=== PATIENT | male | born 1990 | race African-American/Black ===

== ENCOUNTER 2019-01-09 14:03 | Emergency (ER) | payer OTHER ==
--- NOTE | 2019-01-09 14:07 | PDOC ---
Rapid Medical Evaluation Time Seen by Provider: 01/09/19 14:05 Medical Evaluation: 01/09/19 14:06 I have performed a brief in-person evaluation of this patient. The patient presents with a chief complaint of: low back pain x 2 weeks, denies recent trauma, MVA, or heavy lifting, worse with movement/bending Pertinent physical exam findings: FROM, ambulatory, eating pretzels I have ordered the following: nothing The patient will proceed to the ED for further evaluation. Discharge Disposition - Diagnosis Low back pain - Referrals - Patient Instructions - Post Discharge Activity
[2019-01-09 14:09] VITALS: BP 150/63; PULSE 89; TEMP 98.5; BMI 29.5
[2019-01-09] MEDS ORDERED: KETOROLAC TROMETHAMINE 60 MG/2 ML VIAL IM ONE (14:21)
[2019-01-09] MEDS ORDERED: KETOROLAC TROMETHAMINE 60 MG/2 ML VIAL ONE (14:29)
--- NOTE | 2019-01-09 14:30 | PDOC ---
History of Present Illness - General Chief Complaint: Back Pain Stated Complaint: LOWER BACK PAIN Time Seen by Provider: 01/09/19 14:05 History Source: Patient Exam Limitations: No Limitations - History of Present Illness Initial Comments: 01/09/19 14:26 CHIEF COMPLAINT: Lower back pain HISTORY OF PRESENT ILLNESS: Is a 28-year-old male presents emergency department for evaluation of right upper back and left lower back pain for approximately 2 weeks. Patient is denying any radiation or neurosensory deficits, incontinence of bladder or bowel, urinary retention, saddle anesthesia, foot drop, history of IV drug use or history of cancer. Patient endorses recent history where he sustained a laceration in his right upper back approximately where the pain is. REVIEW OF SYSTEMS: GENERAL: Afebrile, denies any weakness RESPIRATORY: No cough, wheezing, or hemoptysis. CARDIAC: No chest pain or shortness of breath MUSCULOSKELETAL: Pain to generalized lower back. No point tenderness. Pain worse on left than right. SKIN : No erythema, no bruising, no deformity. GI/: Denies any abdominal pain, no urinary difficulty, incontinence or urinary retention. RECTAL: Denies any difficulty this A.m. NEUROLOGICAL: Denies any numbness or tingling. No neurosensory deficits. PHYSICAL EXAM: GENERAL: The patient is awake, alert, and fully oriented, in no acute distress. RESPIRATORY: Lungs clear bilaterally, no rhonchi wheezes or crackles CARDIAC: S1-S2 audible, no murmur rub or gallop MUSCULOSKELETAL: Pain to generalized lower back, nonradiating, no tingling or sensory deficit. Less than 2 second cap refill, +2 pedal pulses. No spinal point tenderness. Normal reflexive and no deficits to sensation or strength. GI/: Abdomen soft, nontender, nondistended. No rebound tenderness. No masses palpable. RECTAL: Deferred patient with no neurological findings SKIN: Warm, Dry, normal turgor, no erythema, no edema no bruising. Decreased range of motion of the skin around scar likely from adhesion. Past History - Past Medical History Allergies/Adverse Reactions: Allergies Allergy/AdvReac Type Severity Reaction Status Date / Time No Known Allergies Allergy Verified 01/09/19 14:09 Home Medications: Ambulatory Orders Methocarbamol [Robaxin -] 1,500 mg PO Q8H PRN #30 tablet 01/09/19 Cancer: Yes Cardiac Disorders: Yes COPD: Yes CHF: Yes Diabetes: Yes GI Disorders: Yes HTN: Yes - Psycho Social/Smoking Cessation Hx Smoking History: Never smoked Have you smoked in the past 12 months: No Information on smoking cessation initiated: No Hx Alcohol Use: No Drug/Substance Use Hx: No *Physical Exam - Vital Signs Last Vital Signs Temp Pulse Resp BP Pulse Ox 98.5 F 89 20 150/63 100 01/09/19 14:07 01/09/19 14:07 01/09/19 14:07 01/09/19 14:07 01/09/19 14:07 Medical Decision Making - Medical Decision Making 01/09/19 14:29 A/P: 28-year-old male with left-sided lower back pain and pain surrounding scar in the right upper back Right upper back likely due to adhesions and patient with extensive workout routine Toradol 60 mg IM now Discharge home 01/09/19 14:32 01/09/19 14:37 Patient is requesting radiologic studies. I will get a chest x-ray to rule out any injury to the right upper back. 01/09/19 14:47 Chest x-ray as read by me: Angle sharp. Lung larson are clear without infiltrate or consolidation noted. Cardiac silhouette is within normal limits. Discharge home Discharge - Discharge Information Problems reviewed: Yes Clinical Impression/Diagnosis: Low back pain Qualifiers: Chronicity: acute Back pain laterality: left Sciatica presence: without sciatica Qualified Code(s): M54.5 - Low back pain Condition: Stable Disposition: HOME - Admission No - Additional Discharge Information Prescriptions: Methocarbamol [Robaxin -] 1,500 mg PO Q8H PRN #30 tablet PRN Reason: Back Pain - Follow up/Referral Referrals: [facility] [Provider Group] - Patient Discharge Instructions Additional Instructions: Take Tylenol or Motrin as needed for pain. Follow manufacturers instructions for appropriate dosage. Try not to walk or bear weight as much as possible for the next 3 days. Robaxin 1500 mg orally 3 times a day as needed for back pain. Warm moist heat applied to your back may help alleviate pain. Return to emergency department for discoloration of the foot, numbness or tingling to the foot, worsening pain, or any other concerns. Thank you very much for choosing us to provide your emergent healthcare needs. - Post Discharge Activity Work/Back to School Note: Back to Work
== END 2019-01-09 14:56 | disposition home or self-care (01) ==
LOC: JERFT 14:03
PROC: 3E0233Z Introduction of Anti-inflammatory into Muscle, Percutaneous Approach (ICD-10-PCS; principal; 2019-01-09)
DX: M54.5 Low back pain (principal)
CPT/HCPCS: 71046-TC-FY; 99282-25